=== PATIENT | female | born 1980 | race Caucasian/White ===

== ENCOUNTER 2025-02-15 15:04 | Outpatient (CLI) | payer BC, SELFPAY ==
--- NOTE | ~2025-02-15 | MM_ITS ---
EXAMINATION: screening [facility] BI w gricel INDICATION: Asymptomatic, referred for screening mammogram COMPARISON: Baseline TECHNIQUE: Digital Breast Tomosynthesis CC, MLO views of Both breasts were obtained with computer-aided detection to assist in interpretation of the study. FINDINGS: There are scattered areas of fibroglandular density. There is a circumscribed mass in the superior lateral left breast at middle third. Elsewhere, there are no mammographic features of malignancy. IMPRESSION: 1. Left breast Mass. 2. No evidence of malignancy in the Right breast. RECOMMENDATION: Left breast Diagnostic mammogram with true lateral, appropriate spot compression views and an ultrasound if needed. BI-RADS Category 0: Incomplete: Needs additional imaging evaluation. Reviewed, dictated and finalized at location B. ER MAKER MACHINE IMPRESSION: 1. Left breast Mass. 2. No evidence of malignancy in the Right breast. RECOMMENDATION: Left breast Diagnostic mammogram with true lateral, appropriate spot compressio n views and an ultrasound if needed. BI-RADS Category 0: Incomplete: Needs additional imaging evaluation.
== END 2025-02-15 15:05 | disposition home or self-care (01) ==
LOC: MICIMG 15:04
PROVIDERS: PCP Obstetrics & Gynecology; Visit Provider Obstetrics & Gynecology
DX: Z12.31 Encounter for screening mammogram for malignant neoplasm of breast (principal); R92.8 Other abnormal and inconclusive findings on diagnostic imaging of breast
CPT/HCPCS: 77063; 77067

== ENCOUNTER 2025-03-22 09:30 | Outpatient (CLI) | payer BC, SELFPAY ==
--- NOTE | ~2025-03-22 | MMUS_ITS ---
EXAMINATION: US breast LT limited, MM diagnostic aleks LT w gricel HISTORY: Additional imaging TECHNIQUE: Craniocaudal and mediolateral oblique 3-D tomosynthesis images were obtained and synthetic 2-D images were generated. CAD analysis was submitted and interpreted. Grayscale sonography over the area(s) of interest with color Doppler if there is a finding. COMPARISON: February 15 BREAST PARENCHYMAL COMPOSITION: Dense: The breasts are heterogeneously dense MAMMOGRAM FINDINGS: A small circumscribed nodule persists at approximately 2:00. There are no suspicious calcifications. No unexplained architectural distortion is seen. There are no skin or nipple abnormalities identified. There is no adenopathy seen on the images submitted. ULTRASOUND FINDINGS: Sonography due to o'clock demonstrates the presence of a 5 mm structure thought to represent a cyst containing a few low-level echoes. There is what appears to be a 4 mm echogenic structure at 3:00. It is possible this represents just some echogenic tissue within a fat lobule. This cannot be stated with certainty. IMPRESSION: One of the structures described on ultrasound probably accounts for the mammographic structure. Six-month follow-up left mammogram and left breast ultrasound are recommended. BI-RADS 3 - Probably benign - short-term follow-up is recommended. Reviewed, dictated and finalized at location C. TRUCTION REPRESENTATIVE IMPRESSION: One of the structures described on ultrasound probably accounts for the mammogr aphic structure. Six-month follow-up left mammogram and left breast ultrasound are recommended. BI-RADS 3 - Probably benign - short-term follow-up is recommended.
== END 2025-03-22 09:31 | disposition home or self-care (01) ==
LOC: CHSIMG 09:35
PROVIDERS: Visit Provider Obstetrics & Gynecology
DX: N63.20 Unspecified lump in the left breast, unspecified quadrant (principal)
CPT/HCPCS: 76642; 77061; 77065; G0279